=== PATIENT | male | born 1940 | race Caucasian/White ===

== ENCOUNTER → 2021-08-07 | Outpatient (CLI) | payer MEDICARE, OTHER ==
--- NOTE | 2021-08-07 14:04 | Diagnostic Imaging Report ---
INDICATION: Right shoulder pain. TECHNIQUE: AP, oblique, transscapular, and transaxillary views of the right shoulder were obtained. FINDINGS: No fracture or acute bony abnormality is seen. The glenohumeral joint and AC joint are in good alignment. There is mild degenerative change of the AC joint. IMPRESSION: No acute fracture or malalignment. Mild degenerative change of the AC joint. Dictated by: Dictated on workstation # [id number]
== END ==
LOC: RAD FS 10:22
PROVIDERS: ATTEND Nurse Practitioner
DX: M19.011 Primary osteoarthritis, right shoulder (principal)
CPT/HCPCS: 73030

== ENCOUNTER → 2022-01-03 | Outpatient (CLI) | payer MEDICARE, OTHER ==
--- NOTE | 2022-01-03 12:59 | Diagnostic Imaging Report ---
INDICATION: Prior history of sinus mass five years ago. TECHNIQUE: Multiple contiguous axial images were obtained through the sinuses without the use of intravenous contrast. Coronal and sagittal reformations were then performed. Auto Exposure Controls were utilized during the CT exam to meet ALARA standards for radiation dose reduction. FINDINGS: CT sinuses obtained without IV contrast. There is no prior study for comparison. The frontal sinuses appear clear. The ethmoid air cells appear clear. The sphenoid sinuses appear clear. The maxillary sinuses are clear. Orbital contents appear unremarkable. There is deviation of the nasal septum toward the right side with septal bone spur. The turbinates appear symmetric. There is a minimal polyp versus mucosal thickening along the right side of the nasal septum inferiorly. Ostiomeatal complexes are patent. There is a fat density lesion in the right side of the retropharyngeal region in the nasopharynx, compatible with lipoma, this measured about 1.8 x 1.2 cm. IMPRESSION: No significant sinus fluid level or mucosal thickening in the sinuses. There is deviation of the nasal septum toward the right side with septal bone spur and small soft tissue density measuring 4 to 5 mm, this may represent mucosal thickening or small polyp. There is no other significant abnormality. 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 Dictated by: Dictated on workstation # [id number]
== END ==
LOC: RAD FS 11:37
PROVIDERS: ATTEND Otolaryngology Otolaryngology/Facial Plastic Surgery
DX: J34.2 Deviated nasal septum (principal); D17.79 Benign lipomatous neoplasm of other sites
CPT/HCPCS: 70486

== ENCOUNTER 2023-05-25 10:53 | Emergency (ER) | payer MEDICARE, OTHER ==
[~2023-05-25] VITALS: Ht 187.9 cm; Wt 113.4 kg
[2023-05-25 11:05] LABS: BASOPHILS % (AUTO) 0 % (0-10); EOSINOPHILS # (AUTO) 0.2 10^3/uL (0.0-0.3); EOSINOPHILS % (AUTO) 4 % (0-10); HEMATOCRIT 40 % (40-54); HEMOGLOBIN 13.8 g/dL (13.3-17.7); LYMPHOCYTES # (AUTO) 2.3 10^3/uL (1.0-4.0); LYMPHOCYTES % (AUTO) 46 % (12-44); MEAN CORPUSCULAR HEMOGLOBIN 34 pg (25-34); MEAN CORPUSCULAR HGB CONC 34 g/dL (32-36); MEAN CORPUSCULAR VOLUME 100 fL (80-99); MEAN PLATELET VOLUME 8.3 fL (9.0-12.2); MONOCYTES # (AUTO) 0.5 10^3/uL (0.0-1.0); MONOCYTES % (AUTO) 10 % (0-12); NEUTROPHILS % (AUTO) 40 % (42-75); PLATELET COUNT 165 10^3/uL (130-400)
--- NOTE | 2023-05-25 11:06 | ED General ---
General Stated Complaint: DIZZINESS; HEAD INJ Source of Information: Patient, EMS Exam Limitations: No Limitations History of Present Illness Date Seen by Provider: May 25, 2023 Time Seen by Provider: 10:53 Initial Comments 82-year-old male with past medical history of paroxysmal A-fib on Eliquis with a pacemaker coming in via EMS due to elevated blood pressure and lightheadedness. The patient states this started roughly 10 days ago where he was at a pain management appointment, they noticed his blood pressure was elevated and they told him to continue to monitor it. He does not take medications for blood pressure. He states he has been intermittently elevated. This morning he felt lightheaded, took his blood pressure, was in the 170s systolic, so called EMS. Denies any chest pain, shortness of breath, abdominal pain, nausea, vomiting, new diarrhea (history of IBS), focal weakness or numbness, fever, chills, vision changes, speech changes, or any other concerns. He did have a remote fall he states roughly 15 days ago. He had a hematoma on the back of his head which was drained last week at a walk-in clinic. Allergies and Home Medications Allergies Coded Allergies: adhesive tape (Verified Allergy, Unknown, 05/25/23) levofloxacin (Verified Allergy, Unknown, 05/25/23) Patient Home Medication List Home Medication List Reviewed: Yes Review of Systems Review of Systems Constitutional: No fever EENTM: no symptoms reported Respiratory: no symptoms reported Cardiovascular: see HPI Gastrointestinal: no symptoms reported Genitourinary: no symptoms reported Musculoskeletal: no symptoms reported Skin: no symptoms reported Psychiatric/Neurological: See HPI Hematologic/Lymphatic: No Symptoms Reported Immunological/Allergic: no symptoms reported All Other Systems Reviewed Negative Unless Noted: Yes Past Txqxyhl-Rxebct-Emdqsn Hx Patient Social History Tobacco Use?: No Smoking Status: Former Smoker Substance use?: No Alcohol Use?: Yes Alcohol Frequency: Once in a while Past Medical History Surgeries: Yes Orthopedic, Pacemaker Physical Exam Vital Signs Vital Signs - First Documented 05/25/23 10:55 Temp 36.6 Pulse 90 Resp 15 B/P (MAP) 173/80 (111) Pulse Ox 97 O2 Delivery Room Air Capillary Refill : Height, Weight, BMI Height: '" Weight: lbs. oz. kg; BMI Method: General Appearance: No Apparent Distress, WD/WN Eyes: Bilateral Eye Normal Inspection, Bilateral Eye PERRL, Bilateral Eye EOMI HEENT: PERRL/EOMI, Normal ENT Inspection, Pharynx Normal Neck: Full Range of Motion, Normal Inspection, Non Tender, Supple Respiratory: Chest Non Tender, Lungs Clear, Normal Breath Sounds, No Accessory Muscle Use, No Respiratory Distress Cardiovascular: Regular Rate, Rhythm, Normal Peripheral Pulses Gastrointestinal: Normal Bowel Sounds, Non Tender, Soft; No Distended, No Guarding Back: Normal Inspection, No CVA Tenderness, No Vertebral Tenderness Extremity: Normal Capillary Refill, Normal Inspection, Normal Range of Motion, Non Tender, No Calf Tenderness, Pedal Edema Neurologic/Psychiatric: Alert, Oriented x3, No Motor/Sensory Deficits, Normal 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, 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 Norm as Tested Skin: Normal Color, Warm/Dry Progress/Results/Core Measures Suspected Sepsis SIRS Temperature: Pulse: Respiratory Rate: Laboratory Tests 05/25/23 11:00: White Blood Count 5.0 Blood Pressure / Mean: Laboratory Tests 05/25/23 11:00: Creatinine 0.96, INR Comment 1.1, Platelet Count 165, Total Bilirubin 0.7 Results/Orders Lab Results Laboratory Tests Test 05/25/23 11:00 Range/Units White Blood Count 5.0 4.3-11.0 10^3/uL Red Blood Count 4.02 L 4.30-5.52 10^6/uL Hemoglobin 13.8 13.3-17.7 g/dL Hematocrit 40 40-54 % Mean Corpuscular Volume 100 H 80-99 fL Mean Corpuscular Hemoglobin 34 25-34 pg Mean Corpuscular Hemoglobin Concent 34 32-36 g/dL Red Cell Distribution Width 13.4 10.0-14.5 % Platelet Count 165 130-400 10^3/uL Mean Platelet Volume 8.3 L 9.0-12.2 fL Immature Granulocyte % (Auto) 0 % Neutrophils (%) (Auto) 40 L 42-75 % Lymphocytes (%) (Auto) 46 H 12-44 % Monocytes (%) (Auto) 10 0-12 % Eosinophils (%) (Auto) 4 0-10 % Basophils (%) (Auto) 0 0-10 % Neutrophils # (Auto) 2.0 1.8-7.8 10^3/uL Lymphocytes # (Auto) 2.3 1.0-4.0 10^3/uL Monocytes # (Auto) 0.5 0.0-1.0 10^3/uL Eosinophils # (Auto) 0.2 0.0-0.3 10^3/uL Basophils # (Auto) 0.0 0.0-0.1 10^3/uL Immature Granulocyte # (Auto) 0.0 0.0-0.1 10^3/uL Prothrombin Time 14.7 12.2-14.7 SEC INR Comment 1.1 0.8-1.4 Activated Partial Thromboplast Time 30 24-35 SEC Sodium Level 138 135-145 MMOL/L Potassium Level 4.1 3.6-5.0 MMOL/L Chloride Level 103 98-107 MMOL/L Carbon Dioxide Level 23 21-32 MMOL/L Anion Gap 12 5-14 MMOL/L Blood Urea Nitrogen 22 H 7-18 MG/DL Creatinine 0.96 0.60-1.30 MG/DL Estimat Glomerular Filtration Rate 79 BUN/Creatinine Ratio 23 Glucose Level 108 H 70-105 MG/DL Calcium Level 9.7 8.5-10.1 MG/DL Corrected Calcium 9.4 8.5-10.1 MG/DL Magnesium Level 2.3 1.6-2.4 MG/DL Total Bilirubin 0.7 0.1-1.0 MG/DL Aspartate Amino Transf (AST/SGOT) 32 5-34 U/L Alanine Aminotransferase (ALT/SGPT) 23 0-55 U/L Alkaline Phosphatase 92 40-136 U/L Troponin I < 0.30 <0.30 NG/ML Pro-B-Type Natriuretic Peptide 96.9 <450.0 PG/ML Total Protein 7.4 6.4-8.2 GM/DL Albumin 4.4 3.2-4.5 GM/DL My Orders Orders - CHIRAG DAN MD Ct Head Wo (05/25/23 11:01) Ed Iv/Invasive Line Start (05/25/23 11:01) Ekg Tracing (05/25/23 11:01) Monitor-Rhythm Ecg Trace Only (05/25/23 11:01) Cbc With Automated Diff (05/25/23 11:01) Comprehensive Metabolic Panel (05/25/23 11:01) Magnesium (05/25/23 11:01) Protime With Inr (05/25/23 11:01) Partial Thromboplastin Time (05/25/23 11:01) Probnp Fs (05/25/23 11:01) Troponin I Fs (05/25/23 11:01) Chest 1 View Ap/Pa Only (05/25/23 11:01) Vital Signs/I&O 05/25/23 10:55 Temp 36.6 Pulse 90 Resp 15 B/P (MAP) 173/80 (111) Pulse Ox 97 O2 Delivery Room Air Capillary Refill : Progress Note : Progress Note 82-year-old male with above history coming in due to elevated blood pressure. Feels lightheaded at times but otherwise fairly asymptomatic. He did have a remote fall over 2 weeks ago hitting his head. ABCs were intact and vitals were stable on presentation although he was hypertensive here, mostly 170s systolic. Repeat trends down to the 140s systolic. CT head ordered and interpreted by me showing no obvious intracranial bleed or other abnormality. Chest x-ray ordered and interpreted by me showing normal cardiac silhouette, no opacities, no pneumothorax. An IV was placed and basic labs were obtained and were significant for normal white blood cell count, normal electrolytes, normal creatinine, negative troponin, normal proBNP. EKG ordered and interpreted by me showing no acute ischemic changes. Given his age, the fact that he is on Eliquis, and he has had a fall recently, with his blood pressure trending down to the 140s, I would not want to start him on anything and potentially dropping too low to where he is becoming more lightheaded and falling. I will have him keep a journal of blood pressures, and if he is persistently elevated he should call his PCP to start on a medication potentially. I believe he is otherwise stable for discharge with outpatient follow-up. He was sent home with strict return precautions. ECG Initial ECG Impression Date: May 25, 2023 Initial ECG Impression Time: 10:56 Initial ECG Rate: 76 Initial ECG Rhythm: Normal Sinus Comment Wide QRS, left axis deviation, no significant ST changes Diagnostic Imaging Diagonstic Imaging: Xray (chest), CT (head) Comments NAME: PERLA MAJOR MED REC#: [id number] PT STATUS: REG ER : 1940 PHYSICIAN: CHIRAG DAN MD ADMIT DATE: 05/25/23/ER FS Draft Date of Exam:05/25/23 CT HEAD WO EXAMINATION: CT head without contrast. TECHNIQUE: Multiple contiguous axial images were obtained through the brain without the use of intravenous contrast. All CT scans use one or more of the following dose optimizing techniques: automated exposure control, MA and/or KvP adjustment based on patient size and exam type or iterative reconstruction. HISTORY: Head pain after injury, lightheadedness COMPARISON: None available. FINDINGS: Mild diffuse cerebral volume loss with proportional enlargement of the ventricles and sulci. Mild hypodensities throughout the supratentorial white matter of both cerebral hemispheres. No acute intracranial hemorrhage or abnormal extra-axial fluid collections are present. Calcification of the intracranial ICAs. No hyperdense vessel. The calvarium is intact. The mastoid air cells are clear. The visualized paranasal sinuses are clear. Surgical changes from cataract repair. Left small posterior scalp hematoma. IMPRESSION: 1. No acute intracranial abnormality. 2. Small left posterior scalp hematoma without underlying calvarial fracture. 3. Mild chronic microangiopathy and volume loss. Dictated on workstation # [id number] Dict: 05/25/23 1131 Trans: 05/25/23 1136 [id number] Interpreted by: LETA ROBERTO DO Electronically signed by: NAME: PERLA MAJOR MED REC#: [id number] PT STATUS: REG ER : 1940 PHYSICIAN: CHIRAG DAN MD ADMIT DATE: 05/25/23/ER FS Draft Date of Exam:05/25/23 CHEST 1 VIEW AP/PA ONLY EXAMINATION: Chest 1 view HISTORY: near syncope COMPARISON: None available. FINDINGS: Heart size and pulmonary vasculature are normal. The lungs are clear without consolidation, pleural effusion, or pneumothorax. Degenerative changes of the thoracic spine. Osseous structures are otherwise intact. Left-sided cardiac device is present. IMPRESSION: 1. No acute radiographic abnormality in the chest. Dictated on workstation # [id number] Dict: 05/25/23 1132 Trans: 05/25/23 1136 [id number] Interpreted by: LETA ROBERTO DO Electronically signed by: Departure Impression Primary Impression: Hypertension Qualified Codes: I10 - Essential (primary) hypertension Additional Impression: Light headed Disposition: 01 HOME, SELF-CARE Condition: Stable Departure-Patient Inst. Decision time for Depature: 11:50 Referrals: [facility] (PCP/Family) Primary Care Physician Patient Instructions: High Blood Pressure ED, Dizziness, Nonvertigo, (DC) Add. Discharge Instructions: Your blood pressure was a little elevated in the ER, it trended down to the 140s over 50s with rest. We want you to continue to take your blood pressure daily, keep a journal of the readings to show your regular doctor. If it is persistently elevated over the next week or 2, they may want to start you on a medication for it. We do not want to drop her blood pressure too low given your risk of falling, especially since you are on a blood thinner. CHIRAG DAN MD May 25, 2023 11:06
[2023-05-25 11:23] LABS: INR 1.1 (0.8-1.4); PROTHROMBIN TIME PATIENT 14.7 SEC (12.2-14.7)
[2023-05-25 11:29] LABS: ALANINE AMINOTRANSFERASE 23 U/L (0-55); ALBUMIN 4.4 GM/DL (3.2-4.5); ALKALINE PHOSPHATASE 92 U/L (40-136); BILIRUBIN,TOTAL 0.7 MG/DL (0.1-1.0); BUN/CREATININE RATIO 23; CALCIUM 9.7 MG/DL (8.5-10.1); CARBON DIOXIDE 23 MMOL/L (21-32); CHLORIDE 103 MMOL/L (98-107); CREATININE SERUM 0.96 MG/DL (0.60-1.30); GFR ESTIMATED 79; GLUCOSE 108 MG/DL (70-105); MAGNESIUM 2.3 MG/DL (1.6-2.4); POTASSIUM 4.1 MMOL/L (3.6-5.0); SODIUM 138 MMOL/L (135-145); TOTAL PROTEIN 7.4 GM/DL (6.4-8.2)
--- NOTE | 2023-05-25 11:36 | Diagnostic Imaging Report ---
EXAMINATION: CT head without contrast. TECHNIQUE: Multiple contiguous axial images were obtained through the brain without the use of intravenous contrast. All CT scans use one or more of the following dose optimizing techniques: automated exposure control, MA and/or KvP adjustment based on patient size and exam type or iterative reconstruction. HISTORY: Head pain after injury, lightheadedness COMPARISON: None available. FINDINGS: Mild diffuse cerebral volume loss with proportional enlargement of the ventricles and sulci. Mild hypodensities throughout the supratentorial white matter of both cerebral hemispheres. No acute intracranial hemorrhage or abnormal extra-axial fluid collections are present. Calcification of the intracranial ICAs. No hyperdense vessel. The calvarium is intact. The mastoid air cells are clear. The visualized paranasal sinuses are clear. Surgical changes from cataract repair. Left small posterior scalp hematoma. IMPRESSION: 1. No acute intracranial abnormality. 2. Small left posterior scalp hematoma without underlying calvarial fracture. 3. Mild chronic microangiopathy and volume loss. Dictated by: Dictated on workstation # [id number]
--- NOTE | 2023-05-25 11:36 | Diagnostic Imaging Report ---
EXAMINATION: Chest 1 view HISTORY: near syncope COMPARISON: None available. FINDINGS: Heart size and pulmonary vasculature are normal. The lungs are clear without consolidation, pleural effusion, or pneumothorax. Degenerative changes of the thoracic spine. Osseous structures are otherwise intact. Left-sided cardiac device is present. IMPRESSION: 1. No acute radiographic abnormality in the chest. Dictated by: Dictated on workstation # [id number]
[2023-05-25 11:45] VITALS: BP 148/58
== END 2023-05-25 11:46 | disposition home or self-care (01) ==
LOC: EDUNIT# 10:53 → ER FS 10:54
DX: I10 Essential (primary) hypertension (principal); I48.0 Paroxysmal atrial fibrillation; Z79.01 Long term (current) use of anticoagulants; Z95.0 Presence of cardiac pacemaker; Z87.891 Personal history of nicotine dependence; W18.30XA Fall on same level, unspecified, initial encounter; W22.8XXA Striking against or struck by other objects, initial encounter
CPT/HCPCS: 36415; 70450; 71045; 80053; 83735; 83880; 84484; 85025; 85610; 85730; 93005; 93041